=== PATIENT | female | born 1990 | race Two or more races ===

== ENCOUNTER → 2017-07-13 18:51 | Outpatient (CLI) | payer OTHER | END | disposition home or self-care (01) | LOC: LAB 18:51 | DX: J10.1 Influenza due to other identified influenza virus with other respiratory manifestations (principal) ==

== ENCOUNTER → 2017-07-13 | Outpatient (CLI) | payer OTHER ==
[~2017-07-13] VITALS: Ht 152.4 cm; Wt 62.6 kg
[~2017-07-13] MED LIST: LEVAQUIN750 MG PO; PRILOSEC20 MG PO; ZANTAC300 MG PO
== END | disposition home or self-care (01) ==
LOC: PPHC 16:52
DX: J06.9 Acute upper respiratory infection, unspecified (principal)

== ENCOUNTER → 2017-07-14 11:01 | Outpatient (CLI) | payer OTHER | END | disposition home or self-care (01) | LOC: LAB 11:01 | DX: J11.1 Influenza due to unidentified influenza virus with other respiratory manifestations (principal) ==

== ENCOUNTER → 2017-07-14 | Outpatient (CLI) | payer OTHER ==
[~2017-07-14] VITALS: Ht 152.4 cm; Wt 62.6 kg
== END | disposition home or self-care (01) ==
LOC: PPHC 08:06
DX: J09.X2 Influenza due to identified novel influenza A virus with other respiratory manifestations (principal)

== ENCOUNTER 2017-07-15 11:47 | Outpatient (CLI) | payer OTHER | END 2017-07-15 11:51 | disposition home or self-care (01) | LOC: LAB 11:47 | DX: Z00.00 Encounter for general adult medical examination without abnormal findings (principal) ==

== ENCOUNTER → 2017-07-15 | Outpatient (CLI) | payer OTHER ==
[~2017-07-15] VITALS: Ht 152.4 cm; Wt 62.6 kg
== END | disposition home or self-care (01) ==
LOC: PPHC 12:51
DX: J09.X2 Influenza due to identified novel influenza A virus with other respiratory manifestations (principal)

== ENCOUNTER 2017-12-26 07:09 | Outpatient (CLI) | payer OTHER | END 2017-12-26 07:14 | disposition home or self-care (01) | LOC: LAB 07:09 | DX: E16.1 Other hypoglycemia (principal); R42 Dizziness and giddiness ==

== ENCOUNTER 2018-01-28 12:43 | Outpatient (CLI) | payer OTHER | END 2018-01-28 12:44 | disposition home or self-care (01) | LOC: LAB 12:43 | DX: R50.9 Fever, unspecified (principal); J11.1 Influenza due to unidentified influenza virus with other respiratory manifestations ==

== ENCOUNTER 2018-11-15 14:44 | Outpatient (CLI) | payer OTHER | END 2018-11-15 14:52 | disposition home or self-care (01) | LOC: LAB 14:44 | DX: J11.1 Influenza due to unidentified influenza virus with other respiratory manifestations (principal); M96.0 Pseudarthrosis after fusion or arthrodesis; L98.8 Other specified disorders of the skin and subcutaneous tissue ==

== ENCOUNTER 2018-11-17 11:37 | Outpatient (CLI) | payer OTHER | END 2018-11-17 11:40 | disposition home or self-care (01) | LOC: LAB 11:37 | DX: J11.1 Influenza due to unidentified influenza virus with other respiratory manifestations (principal); B96.0 Mycoplasma pneumoniae [M. pneumoniae] as the cause of diseases classified elsewhere; L98.8 Other specified disorders of the skin and subcutaneous tissue; D64.89 Other specified anemias ==

== ENCOUNTER 2019-01-15 08:37 | Outpatient (CLI) | payer OTHER | END 2019-01-15 15:00 | disposition home or self-care (01) | LOC: LAB 08:37 | DX: E78.5 Hyperlipidemia, unspecified (principal); R42 Dizziness and giddiness; R10.2 Pelvic and perineal pain ==

== ENCOUNTER 2019-03-23 14:33 | Outpatient (CLI) | payer OTHER | END 2019-03-23 14:39 | disposition home or self-care (01) | LOC: LAB 14:33 | DX: J11.1 Influenza due to unidentified influenza virus with other respiratory manifestations (principal) ==

== ENCOUNTER → 2019-12-26 09:05 | Outpatient (CLI) | payer OTHER | END | disposition home or self-care (01) | LOC: LAB 09:05 | PROVIDERS: ATTEND General Practice | DX: N92.5 Other specified irregular menstruation (principal) ==

== ENCOUNTER 2020-01-07 07:32 | Outpatient (CLI) | payer OTHER | END 2020-01-07 07:41 | disposition home or self-care (01) | LOC: LAB 07:32 | PROVIDERS: ATTEND Specialist | DX: Z34.80 Encounter for supervision of other normal pregnancy, unspecified trimester (principal) ==

== ENCOUNTER → 2020-01-24 | Outpatient (CLI) | payer OTHER | END | disposition home or self-care (01) | LOC: PRENATAL 09:00 | PROVIDERS: ATTEND Obstetrics & Gynecology Maternal & Fetal Medicine | DX: O26.851 Spotting complicating pregnancy, first trimester (principal); O36.80X1 Pregnancy with inconclusive fetal viability, fetus 1; Z36.89 Encounter for other specified antenatal screening; Z3A.10 10 weeks gestation of pregnancy ==

== ENCOUNTER 2020-01-27 05:15 | Day surgery (SDC) | payer OTHER | END 2020-01-27 14:25 | disposition home or self-care (01) | LOC: CIR.AMB 05:15 | PROVIDERS: ATTEND Specialist | DX: O02.1 Missed abortion (principal); Z20.828 Contact with and (suspected) exposure to other viral communicable diseases ==

== ENCOUNTER → 2020-02-28 | Outpatient (CLI) | payer OTHER | END | disposition home or self-care (01) | LOC: PPH VACUNA 07:00 | DX: Z23 Encounter for immunization (principal) ==

== ENCOUNTER 2020-05-11 07:23 | Outpatient (CLI) | payer OTHER | END 2020-05-11 07:31 | disposition home or self-care (01) | LOC: LAB 07:23 | PROVIDERS: ATTEND General Practice | DX: R05 Cough (principal); Z11.3 Encounter for screening for infections with a predominantly sexual mode of transmission ==

== ENCOUNTER 2020-05-11 07:50 | Outpatient (CLI) | payer OTHER | END 2020-05-11 07:54 | disposition HB | LOC: RAD 07:50 | PROVIDERS: ATTEND General Practice | DX: M43.8X4 Other specified deforming dorsopathies, thoracic region (principal); R05 Cough ==

== ENCOUNTER → 2020-06-04 09:56 | Outpatient (CLI) | payer OTHER | END | disposition home or self-care (01) | LOC: LAB 09:56 | PROVIDERS: ATTEND Physical Medicine & Rehabilitation | DX: Z11.59 Encounter for screening for other viral diseases (principal) ==

== ENCOUNTER 2020-08-03 06:56 | Outpatient (CLI) | payer OTHER | END 2020-08-03 07:00 | disposition home or self-care (01) | LOC: LAB 06:56 | PROVIDERS: ATTEND Specialist | DX: Z34.80 Encounter for supervision of other normal pregnancy, unspecified trimester (principal) ==

== ENCOUNTER → 2020-09-28 14:48 | Outpatient (CLI) | payer OTHER ==
[~2020-09-28 14:48] MED LIST changes: +FOLIC ACID20 MG PO; +PRENATAL CAPLE1 EAC1 PO
== END | disposition home or self-care (01) ==
LOC: LAB 14:48
PROVIDERS: ATTEND Specialist
DX: Z34.80 Encounter for supervision of other normal pregnancy, unspecified trimester (principal)

== ENCOUNTER 2020-10-24 11:03 | Outpatient (CLI) | payer OTHER ==
[~2020-10-24 11:03] MED LIST changes: -FOLIC ACID20 MG PO; -PRENATAL CAPLE1 EAC1 PO
[2020-10-24] MEDS ORDERED: PRENATAL CAPLE1 EAC1 PO (11:58)
[2020-10-24] MEDS ORDERED: FOLIC ACID20 MG PO (11:58)
== END 2020-10-24 15:35 | disposition home or self-care (01) ==
LOC: OBS/DEL 11:03
PROVIDERS: ATTEND Specialist
DX: O26.842 Uterine size-date discrepancy, second trimester (principal); O34.211 Maternal care for low transverse scar from previous cesarean delivery; O26.892 Other specified pregnancy related conditions, second trimester; R10.2 Pelvic and perineal pain; O26.852 Spotting complicating pregnancy, second trimester; Z3A.19 19 weeks gestation of pregnancy

== ENCOUNTER → 2020-10-24 | Emergency (ER) | payer OTHER ==
[~2020-10-24] VITALS: Ht 157.5 cm; Wt 69.4 kg
== END | disposition home or self-care (01) ==
LOC: ER 06:39
DX: O26.892 Other specified pregnancy related conditions, second trimester (principal); R10.2 Pelvic and perineal pain; Z34.82 Encounter for supervision of other normal pregnancy, second trimester

== ENCOUNTER → 2020-11-16 | Outpatient (CLI) | payer OTHER ==
[~2020-11-16] MED LIST changes: +FOLIC ACID20 MG PO; +PRENATAL CAPLE1 EAC1 PO
== END | disposition home or self-care (01) ==
LOC: PRENATAL 14:28
PROVIDERS: ATTEND Obstetrics & Gynecology Maternal & Fetal Medicine
DX: O35.0XX1 Maternal care for (suspected) central nervous system malformation in fetus, fetus 1 (principal); O35.3XX1 Maternal care for (suspected) damage to fetus from viral disease in mother, fetus 1; O98.512 Other viral diseases complicating pregnancy, second trimester; O34.12 Maternal care for benign tumor of corpus uteri, second trimester; Z36.89 Encounter for other specified antenatal screening; Z3A.22 22 weeks gestation of pregnancy

== ENCOUNTER 2020-12-31 07:35 | Outpatient (CLI) | payer OTHER | END 2020-12-31 07:41 | disposition home or self-care (01) | LOC: LAB 07:35 | PROVIDERS: ATTEND Specialist | DX: Z34.80 Encounter for supervision of other normal pregnancy, unspecified trimester (principal) ==

== ENCOUNTER 2021-01-03 11:35 | Outpatient (CLI) | payer OTHER | END 2021-01-04 10:26 | disposition home or self-care (01) | LOC: OBS/DEL 11:35 | PROVIDERS: ATTEND Specialist | DX: O26.893 Other specified pregnancy related conditions, third trimester (principal); R10.2 Pelvic and perineal pain; Z3A.29 29 weeks gestation of pregnancy ==

== ENCOUNTER 2021-02-06 02:24 | Outpatient (CLI) | payer OTHER ==
[2021-02-06] MEDS ORDERED: IMODIUM A-D2 MG PO (13:10)
== END 2021-02-06 16:31 | disposition home or self-care (01) ==
LOC: OBS/DEL 02:24
PROVIDERS: ATTEND Specialist
DX: O26.893 Other specified pregnancy related conditions, third trimester (principal); K52.89 Other specified noninfective gastroenteritis and colitis; O26.843 Uterine size-date discrepancy, third trimester; O36.8130 Decreased fetal movements, third trimester, not applicable or unspecified; O35.0XX0 Maternal care for (suspected) central nervous system malformation in fetus, not applicable or unspecified; Z3A.34 34 weeks gestation of pregnancy

== ENCOUNTER 2021-02-26 08:30 | Inpatient (IN) | payer OTHER ==
[~2021-02-26] VITALS: Ht 157.5 cm; Wt 2.7 kg
[~2021-02-26 08:30] MED LIST changes: +IMODIUM A-D2 MG PO
== END 2021-03-04 12:43 | disposition home or self-care (01) | DRG 788 ==
LOC: O/R 03-01 05:45 → OB/GYN 03-01 05:45
PROVIDERS: ADMIT Specialist; ATTEND Specialist
PROC: 4A1HXFZ Monitoring of Products of Conception, Cardiac Rhythm, External Approach (ICD-10-PCS; 2021-03-01)
PROC: 10D00Z1 Extraction of Products of Conception, Low, Open Approach (ICD-10-PCS; principal; 2021-03-01 07:00)
DX: O34.211 Maternal care for low transverse scar from previous cesarean delivery (principal); O34.13 Maternal care for benign tumor of corpus uteri, third trimester; D25.9 Leiomyoma of uterus, unspecified; Z3A.38 38 weeks gestation of pregnancy; Z37.0 Single live birth

== ENCOUNTER 2021-04-16 14:45 | Outpatient (CLI) | payer OTHER | END 2021-04-16 15:00 | disposition home or self-care (01) | LOC: PPH VACUNA 14:45 | PROVIDERS: ATTEND Emergency Medicine Pediatric Emergency Medicine | DX: Z23 Encounter for immunization (principal) ==

== ENCOUNTER 2021-06-05 08:00 | Outpatient (CLI) | payer OTHER | END 2021-06-05 08:30 | disposition home or self-care (01) | LOC: PPH VACUNA 08:00 | PROVIDERS: ATTEND Emergency Medicine Pediatric Emergency Medicine | DX: Z23 Encounter for immunization (principal) | CPT/HCPCS: 90686; G0008 ==

== ENCOUNTER 2021-08-02 09:35 | Emergency (ER) | payer OTHER ==
[~2021-08-02] VITALS: Ht 157.5 cm; Wt 64.0 kg
[2021-08-02] MEDS ORDERED: OSELTAMIVIR PHO75 MG PO (12:50)
[2021-08-02] MEDS ORDERED: ZITHROMAX200 MG PO (12:50)
== END 2021-08-02 13:48 | disposition home or self-care (01) ==
LOC: ER 09:35 → EMR PED 09:39 → ER 09:39
DX: U07.1 COVID-19 (principal); J10.1 Influenza due to other identified influenza virus with other respiratory manifestations; A49.3 Mycoplasma infection, unspecified site; Z88.0 Allergy status to penicillin

== ENCOUNTER 2022-02-26 10:41 | Outpatient (CLI) | payer OTHER ==
[~2022-02-26 10:41] MED LIST changes: +OSELTAMIVIR PHO75 MG PO; +ZITHROMAX200 MG PO
== END 2022-02-26 10:46 | disposition home or self-care (01) ==
LOC: PPH VACUNA 10:41
PROVIDERS: ATTEND Emergency Medicine Pediatric Emergency Medicine
DX: Z23 Encounter for immunization (principal)

== ENCOUNTER 2022-02-28 08:12 | Outpatient (CLI) | payer OTHER | END 2022-02-28 08:21 | disposition home or self-care (01) | LOC: LAB 08:12 | PROVIDERS: ATTEND General Practice | DX: E78.5 Hyperlipidemia, unspecified (principal); E55.9 Vitamin D deficiency, unspecified; R42 Dizziness and giddiness; N39.0 Urinary tract infection, site not specified; R51.9 Headache, unspecified; Z11.3 Encounter for screening for infections with a predominantly sexual mode of transmission; Z00.00 Encounter for general adult medical examination without abnormal findings ==

== ENCOUNTER 2022-12-16 08:45 | Outpatient (CLI) | payer OTHER | END 2022-12-16 08:47 | disposition home or self-care (01) | LOC: LAB 08:45 | DX: Z11.9 Encounter for screening for infectious and parasitic diseases, unspecified (principal); B99.9 Unspecified infectious disease ==

== ENCOUNTER 2023-03-13 10:30 | Outpatient (CLI) | payer OTHER | END 2023-03-13 10:40 | disposition home or self-care (01) | LOC: PPH VACUNA 10:30 | PROVIDERS: ATTEND Emergency Medicine Pediatric Emergency Medicine | DX: Z23 Encounter for immunization (principal) ==

== ENCOUNTER 2023-04-29 10:56 | Outpatient (CLI) | payer OTHER | END 2023-04-29 11:01 | disposition home or self-care (01) | LOC: SONOGRAMA 10:56 | PROVIDERS: ATTEND Obstetrics & Gynecology | DX: N60.01 Solitary cyst of right breast (principal); N60.02 Solitary cyst of left breast; Z88.0 Allergy status to penicillin ==

== ENCOUNTER 2023-05-04 13:32 | Outpatient (CLI) | payer OTHER | END 2023-05-04 13:37 | disposition home or self-care (01) | LOC: SONOGRAMA 13:32 | PROVIDERS: ATTEND Obstetrics & Gynecology | DX: R10.2 Pelvic and perineal pain (principal); Z88.0 Allergy status to penicillin ==

== ENCOUNTER 2023-06-24 13:41 | Outpatient (CLI) | payer OTHER | END 2023-06-24 13:48 | disposition home or self-care (01) | LOC: SONOGRAMA 13:41 | PROVIDERS: ATTEND Internal Medicine Hematology & Oncology | DX: L04.0 Acute lymphadenitis of face, head and neck (principal) ==

== ENCOUNTER 2023-07-30 12:39 | Outpatient (CLI) | payer OTHER | END 2023-07-30 12:41 | disposition home or self-care (01) | LOC: SONOGRAMA 12:39 | PROVIDERS: ATTEND Pathology Anatomic Pathology & Clinical Pathology | DX: L04.0 Acute lymphadenitis of face, head and neck (principal) ==

== ENCOUNTER 2023-09-09 08:07 | Outpatient (CLI) | payer OTHER ==
[2023-09-09 10:51] LABS: LDH 121 U/L (84-246)
[2023-09-09 10:53] LABS: C-REACTIVE PROTEIN < 0.29 MG/DL (0.00-0.29)
[2023-09-10 09:08] LABS: IMMUNOGLOBULIN A 462 mg/dL (87-352); IMMUNOGLOBULIN G 1947 mg/dL (586-1602); IMMUNOGLOBULIN M 263 mg/dL (26-217)
[2023-09-10 13:07] LABS: ANTI SCLERODERMA 70 < 0.2 AI (0.0-0.9); ANTI-CENTROMERE AB <0.2 AI (0.0-0.9); DNA AB DOUBLE STRABDED < 1 IU/mL (0-9); kappa lambda r 1.28 (0.26-1.65); kappa light 32.1 mg/L (3.3-19.4); lambda light 25.1 mg/L (5.7-26.3); rnp 0.2 AI (0.0-0.9); sjogrens ssa > 8.0 AI (0.0-0.9); sjogrens ssb < 0.2 AI (0.0-0.9); smith ab < 0.2 AI (0.0-0.9)
== END 2023-09-09 08:08 | disposition home or self-care (01) ==
LOC: LAB 08:07
PROVIDERS: ATTEND Internal Medicine Hematology & Oncology
DX: C88.8 Other malignant immunoproliferative diseases (principal); E85.81 Light chain (AL) amyloidosis; D80.8 Other immunodeficiencies with predominantly antibody defects; D82.4 Hyperimmunoglobulin E [IgE] syndrome; M32.8 Other forms of systemic lupus erythematosus

== ENCOUNTER 2024-03-03 17:26 | Outpatient (CLI) | payer OTHER ==
[2024-03-03 18:06] LABS: HEMATOCRIT 32.3 % (36.0-45.00); HEMOGLOBIN 10.7 g/dL (12.0-15.00); MEAN CELL VOLUME 79.9 fL (80.00-100.00); MEAN CORPUSCULAR HEMOGLOBIN 26.4 pg (27.00-32.0); PLATELET COUNT 352 K/uL (150-450); RED BLOOD COUNT 4.04 M/uL (4.00-6.00); RED CELL DISTRIBUTION WIDTH 14.6 % (11.5-14.5)
[2024-03-03 18:42] LABS: MYCOPLASMA PNEUMONIAE IGM REACTIVE (NO REACTIVE)
== END 2024-03-03 17:52 | disposition home or self-care (01) ==
LOC: LAB 17:26
PROVIDERS: ATTEND Physical Medicine & Rehabilitation
DX: J06.9 Acute upper respiratory infection, unspecified (principal)

== ENCOUNTER 2024-03-16 14:39 | Outpatient (CLI) | payer OTHER ==
[2024-03-16 15:17] LABS: HEMOGLOBIN 11.2 g/dL (12.0-15.00); MEAN CELL VOLUME 81.3 fL (80.00-100.00); MEAN CORPUSCULAR HEMOGLOBIN 26.8 pg (27.00-32.0); PLATELET COUNT 362 K/uL (150-450); RED BLOOD COUNT 4.18 M/uL (4.00-6.00); RED CELL DISTRIBUTION WIDTH 14.4 % (11.5-14.5)
== END 2024-03-16 15:10 | disposition home or self-care (01) ==
LOC: LAB 14:39
PROVIDERS: ATTEND Physical Medicine & Rehabilitation
DX: R05.9 Cough, unspecified (principal); R50.9 Fever, unspecified; R06.02 Shortness of breath; Z03.818 Encounter for observation for suspected exposure to other biological agents ruled out; Z11.52 Encounter for screening for COVID-19; Z20.822 Contact with and (suspected) exposure to COVID-19; J06.9 Acute upper respiratory infection, unspecified; A49.3 Mycoplasma infection, unspecified site; Z11.59 Encounter for screening for other viral diseases; U07.1 COVID-19

== ENCOUNTER 2024-04-22 02:00 | Outpatient (CLI) | payer OTHER | END 2024-04-22 03:00 | disposition home or self-care (01) | LOC: PPH VACUNA 02:00 | PROVIDERS: ATTEND Emergency Medicine Pediatric Emergency Medicine | DX: Z23 Encounter for immunization (principal) ==

== ENCOUNTER 2024-07-19 08:35 | Outpatient (CLI) | payer OTHER ==
[2024-07-19 09:16] LABS: HEMATOCRIT 33.3 % (36.0-45.00); MEAN CELL VOLUME 80.3 fL (80.00-100.00); MEAN CORPUSCULAR HEMOGLOBIN 26.6 pg (27.00-32.0); MEAN CORPUSCULAR HGB CONC 33.1 g/dl (32.0-36.0); PLATELET COUNT 319 K/uL (150-450); RED BLOOD COUNT 4.15 M/uL (4.00-6.00); RED CELL DISTRIBUTION WIDTH 15.1 % (11.5-14.5)
[2024-07-19 10:59] LABS: FERRITIN 6.5 NG/ML (8-252)
== END 2024-07-19 08:38 | disposition home or self-care (01) ==
LOC: LAB 08:35
PROVIDERS: ATTEND Internal Medicine Hematology & Oncology
DX: D50.8 Other iron deficiency anemias (principal); M35.00 Sjogren syndrome, unspecified; M32.8 Other forms of systemic lupus erythematosus

== ENCOUNTER 2024-10-13 13:23 | Outpatient (CLI) | payer OTHER ==
[2024-10-13 14:22] LABS: BILIRUBIN TOTAL 0.5 mg/dL (0.3-1.2); CREATININE SERUM 0.58 mg/dL (0.55-1.02); FERRITIN 11.1 NG/ML (8-252); GFR 117.63; POTASSIUM 4.29 mEq/L (3.5-5.1)
[2024-10-13 15:39] LABS: HEMATOCRIT 38.2 % (36.0-45.00); MEAN CELL VOLUME 85.3 fL (80.00-100.00); MEAN CORPUSCULAR HGB CONC 33.9 g/dl (32.0-36.0); PLATELET COUNT 261 K/uL (150-450); RED BLOOD COUNT 4.47 M/uL (4.00-6.00); RED CELL DISTRIBUTION WIDTH 16.2 % (11.5-14.5)
[2024-10-14 07:08] LABS: ERYTHROCYTE SEDIMENTATION RATE 8 mm/hr
== END 2024-10-13 14:52 | disposition home or self-care (01) ==
LOC: LAB 13:23
PROVIDERS: ATTEND Internal Medicine Hematology & Oncology
DX: D50.8 Other iron deficiency anemias (principal); M35.00 Sjogren syndrome, unspecified; R74.01 Elevation of levels of liver transaminase levels; M05.80 Other rheumatoid arthritis with rheumatoid factor of unspecified site; M32.8 Other forms of systemic lupus erythematosus

== ENCOUNTER 2024-12-08 09:01 | Outpatient (CLI) | payer OTHER | END 2024-12-08 09:06 | disposition home or self-care (01) | LOC: RAD 09:01 | PROVIDERS: ATTEND Physical Medicine & Rehabilitation | DX: M41.9 Scoliosis, unspecified (principal); M54.6 Pain in thoracic spine; M54.50 Low back pain, unspecified ==

== ENCOUNTER 2025-02-16 08:32 | Emergency (ER) | payer OTHER ==
[~2025-02-16] VITALS: Ht 157.5 cm; Wt 63.5 kg
[2025-02-16] MEDS ORDERED: PLAQUENIL (08:58)
[2025-02-16 08:59] VITALS: O2SAT 96
[2025-02-16] MEDS ORDERED: GUAIFENESIN/DEXTROMETHORPHAN 100MG/10ML BLIST.PACK PO STA (09:06)
[2025-02-16] MEDS ORDERED: DEXAMETHASONE SODIUM PHOSPHATE 4 MG/ML VIAL IM STA (09:06)
[2025-02-16] MEDS ORDERED: ACETAMINOPHEN 500 MG GEL..CAP PO STA (09:07)
[2025-02-16] MEDS ORDERED: ACETAMINOPHEN 500 MG GEL..CAP PO ONE (09:12)
[2025-02-16] MEDS ORDERED: GUAIFEN/DEXTROMETHORPHAN/PE 10 ML BLIST.PACK PO ONE (09:12)
[2025-02-16] MEDS ORDERED: DEXAMETHASONE SODIUM PHOSPHATE 4 MG/ML VIAL ONE (09:13)
[2025-02-16 09:52] LABS: BASO % 0.3 % (0.1-1.2); EOS # 0.04 (0.04-0.54); EOS % 0.5 % (0.7-7.0); LYMPH # 0.81 (1.18-3.74); LYMPH % 10.7 % (19.3-53.1); MEAN PLATELET VOLUME 9.80 fl (9.4-12.4); MONO # 0.72 (0.24-0.82); MONO % 9.5 % (4.7-12.5); NEUT # 5.96 (1.56-6.13); NEUT % 78.7 % (34.0-71.1); RED CELL DISTRIBUTION WIDTH 11.7 % (11.6-14.4)
[2025-02-16 10:49] LABS: COVID-19 AG NEGATIVE (NEGATIVE)
[2025-02-16] MEDS ORDERED: MEDROLPACK PO (11:17)
[2025-02-16] MEDS ORDERED: ZYRTEC10 MG PO (11:17)
[2025-02-16] MEDS ORDERED: ACETAMINOPHEN500 M1 PO (11:17)
[2025-02-16] MEDS ORDERED: ZITHROMAX500 MG PO (11:17)
[2025-02-16] MEDS ORDERED: MUCINEX DM ER1 EAC1 PO (11:17)
[2025-02-16 12:51] VITALS: BP 96/80
== END 2025-02-16 12:53 | disposition home or self-care (01) ==
LOC: ER 08:37
PROVIDERS: General Practice
DX: J06.9 Acute upper respiratory infection, unspecified (principal); J00 Acute nasopharyngitis [common cold]; Z20.822 Contact with and (suspected) exposure to COVID-19; Z88.0 Allergy status to penicillin

== ENCOUNTER 2025-02-22 13:06 | Outpatient (CLI) | payer OTHER ==
[~2025-02-22 13:06] MED LIST changes: +ACETAMINOPHEN500 M1 PO; +MEDROLPACK PO; +MUCINEX DM ER1 EAC1 PO; +PLAQUENIL; +ZITHROMAX500 MG PO; +ZYRTEC10 MG PO
[2025-02-22] MEDS ORDERED: DICLOFENAC POTA50 MG PO (13:42)
== END 2025-02-23 13:09 | disposition home or self-care (01) ==
LOC: SONOGRAMA 13:06 → RAD 13:06 → SONOGRAMA 02-23 13:09
PROVIDERS: ATTEND Physical Medicine & Rehabilitation
DX: M75.82 Other shoulder lesions, left shoulder (principal)

== ENCOUNTER 2025-03-07 08:16 | Outpatient (CLI) | payer OTHER ==
[~2025-03-07 08:16] MED LIST changes: +DICLOFENAC POTA50 MG PO
[2025-03-07 09:00] LABS: BASO % 0.4 % (0.1-1.2); EOS # 0.10 (0.04-0.54); EOS % 1.9 % (0.7-7.0); LYMPH # 1.78 (1.18-3.74); LYMPH % 33.9 % (19.3-53.1); MEAN PLATELET VOLUME 9.90 fl (9.4-12.4); MONO # 0.49 (0.24-0.82); MONO % 9.3 % (4.7-12.5); NEUT # 2.85 (1.56-6.13); NEUT % 54.3 % (34.0-71.1); RED CELL DISTRIBUTION WIDTH 11.9 % (11.6-14.4)
[2025-03-07 09:51] LABS: FE 135.0 ug/dl (50-170)
== END 2025-03-07 08:29 | disposition home or self-care (01) ==
LOC: LAB 08:16
PROVIDERS: ATTEND Internal Medicine Hematology & Oncology
DX: D50.8 Other iron deficiency anemias (principal); M35.00 Sjogren syndrome, unspecified; Z88.6 Allergy status to analgesic agent

== ENCOUNTER 2025-05-10 15:20 | Outpatient (CLI) | payer OTHER | END 2025-05-10 15:30 | disposition home or self-care (01) | LOC: PPH VACUNA 15:20 | PROVIDERS: ATTEND Emergency Medicine Pediatric Emergency Medicine | DX: Z23 Encounter for immunization (principal) ==